=== PATIENT | male | born 1995 | race Hispanic/Latino ===

== ENCOUNTER 2021-01-10 20:41 | Emergency (ER) | payer BC, OTHER ==
[2021-01-10] MEDS ORDERED: FENTANYL CITR 100 MCG/2 ML ONE (21:06)
[2021-01-10] MEDS ORDERED: ONDANSETRON 4 MG/2 ML VIAL ONE (21:07)
[2021-01-10] MEDS ORDERED: NA CHLORIDE 0.9% 250 ML ONE (21:14)
[2021-01-10] MEDS ORDERED: NA CHLORIDE 0.9% 1,000 ML ONE (21:20)
[2021-01-10] MEDS ORDERED: HYDROMORPHONE HCL 2 MG/ML inj ONE ×2 (21:24→22:35)
[2021-01-10] MEDS ORDERED: MIDAZOLAM HCL 2 MG/2 ML INJ ONE (21:30)
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
[2021-01-11 02:58] VITALS: TEMP 98
[2021-01-11 02:59] VITALS: BP 147/95; O2SAT 98
--- NOTE | 2021-01-11 08:53 | RAD REPORT ---
EXAM DESCRIPTION: RAD - Hand Right 2 View - 01/11/2021 12:00 am CLINICAL HISTORY: Pain COMPARISON: None. FINDINGS: Tuft fractures involving the first and third and fourth distal phalangeal oumou. The first and third tuft fractures are only mildly displaced. The fourth tuft fracture is displaced by nearly a full shaft width posteriorly. IMPRESSION: First, third, and fourth distal phalangeal tuft fractures.
== END 2021-01-11 02:48 | disposition short-term general hospital (02) ==
LOC: ER 20:41
DX: T23.292A Burn of second degree of multiple sites of left wrist and hand, initial encounter (principal); T21.26XA Burn of second degree of male genital region, initial encounter; T21.21XA Burn of second degree of chest wall, initial encounter; T21.24XA Burn of second degree of lower back, initial encounter; W39.XXXA Discharge of firework, initial encounter; Z20.822 Contact with and (suspected) exposure to COVID-19
CPT/HCPCS: 96361; 73120; 96375; 96374; 99285; U0003; J2250; J1170 ×2; J3010; J7050; J7030; J2405